=== PATIENT | female | born 1970 | race African-American/Black ===

== ENCOUNTER 2021-09-08 11:44 | Outpatient (CLI) | payer BC | END 2021-09-08 11:45 | disposition home or self-care (01) | LOC: CSHMRI 11:44 | PROVIDERS: ATTEND Orthopaedic Surgery Hand Surgery | DX: M54.12 Radiculopathy, cervical region (principal); R20.0 Anesthesia of skin; M47.12 Other spondylosis with myelopathy, cervical region | CPT/HCPCS: 72141 ==